=== PATIENT | female | born 1960 | race Caucasian/White ===

== ENCOUNTER 2019-01-19 21:46 | Emergency (ER) | payer OTHER ==
[~2019-01-19] VITALS: Ht 149.9 cm; Wt 61.2 kg
[2019-01-19] MEDS ORDERED: ASPIR 8181 MG (22:22)
[2019-01-19] MEDS ORDERED: COZAAR100 MG (22:22)
[2019-01-19] MEDS ORDERED: NORVASC5 MG (22:22)
== END 2019-01-19 23:30 | disposition home or self-care (01) ==
LOC: ER 21:46
DX: R07.89 Other chest pain (principal)

== ENCOUNTER → 2019-05-25 | Outpatient (CLI) | payer OTHER ==
[~2019-05-25] MED LIST: ASPIR 8181 MG; COZAAR100 MG; NORVASC5 MG
== END | disposition home or self-care (01) ==
LOC: MRI 11:34
DX: C54.8 Malignant neoplasm of overlapping sites of corpus uteri (principal)
CPT/HCPCS: 72195; 74181

== ENCOUNTER 2021-03-11 12:45 | Outpatient (CLI) | payer OTHER | END 2021-03-11 12:51 | disposition home or self-care (01) | LOC: MRI 12:45 | DX: M25.511 Pain in right shoulder (principal) | CPT/HCPCS: 73221 ==

== ENCOUNTER 2025-02-28 07:46 | Outpatient (CLI) | payer OTHER | END 2025-02-28 07:48 | disposition home or self-care (01) | LOC: NUCLEAR 07:46 | DX: C54.9 Malignant neoplasm of corpus uteri, unspecified (principal); C76.3 Malignant neoplasm of pelvis ==

== ENCOUNTER → 2025-03-29 | Outpatient (CLI) | payer OTHER ==
[~2025-03-29] VITALS: Ht 152.4 cm; Wt 54.4 kg
[2025-03-29 11:00] VITALS: BP 123/78; O2SAT 99
[2025-03-29 11:20] VITALS: BP 120/74; O2SAT 100
[2025-03-29 11:40] VITALS: BP 120/80; O2SAT 100
== END | disposition home or self-care (01) ==
LOC: TOM 08:39
PROVIDERS: ATTEND Pediatrics Pediatric Nephrology
DX: C76.3 Malignant neoplasm of pelvis (principal)